=== PATIENT | female | born 1970 | race Caucasian/White ===

== ENCOUNTER 2018-07-08 01:45 | Inpatient (IN) | payer MEDICAID, OTHER ==
[~2018-07-08] VITALS: Ht 157.5 cm; Wt 62.1 kg
[2018-07-08 01:48] VITALS: BP 118/79
--- NOTE | 2018-07-08 01:48 | NUR ---
TO BED # 09 AMBULATORY, REPORT GIVEN TO LENY PATE
[2018-07-08] MEDS ORDERED: NACL 0.9% 1,000 ML IV SCH (01:54)
[2018-07-08] MEDS ORDERED: fentaNYL 0.05 MG/ML VIAL IVP ONE ×2 (01:55→03:30)
--- NOTE | 2018-07-08 02:00 | NUR ---
47 y/o f presented to the ED with c/o abdominal pain x1 day. AAO x4. 10/10 pain per pt, aching in nature. Tenderness to touch to lower abdomen. N/V present. Denies PHM. Bedrails x2 up. HOB elevated for comfort. Bed in lowest postion. notifed. Will continue to monitor. Addendum: 07/08/18 at 0430 by [employer] 47 y/o f presented to the ED with c/o abdominal pain x1 day. AAO x4. 10/10 pain per pt, aching in nature. Tenderness to touch to lower abdomen. N/V present. PMH renal stent and mitral valve prolapse. Smoker. Bedrails x2 up. HOB elevated for comfort. Bed in lowest postion. notifed. Will continue to monitor.
[2018-07-08] MEDS ORDERED: ONDANSETRON 4 MG/2 ML VIAL IVP ONE (02:05)
[2018-07-08] MEDS ORDERED: fentaNYL 0.05 MG/ML VIAL ONE ×2 (02:10→03:42)
[2018-07-08 02:30] LABS: BASOPHILS % (AUTO) 0.5 % (0.0-2.0); EOSINOPHILS % (AUTO) 0.5 % (0.0-4.0); HEMATOCRIT 37.3 % (36-48); HEMOGLOBIN 12.6 g/dL (12.0-16.0); LYMPHOCYTES # (AUTO) 0.7 K/uL (2.5-16.5); LYMPHOCYTES % (AUTO) 9.3 % (20.5-51.1); MEAN CORPUSCULAR HEMOGLOBIN 29 pg (27-31); MEAN CORPUSCULAR HGB CONC 34 g/dL (33-37); MEAN CORPUSCULAR VOLUME 86.2 fL (80-94); MONOCYTES # (AUTO) 0.4 K/uL (0.8-1.0); MONOCYTES % (AUTO) 4.9 % (1.7-9.3); NEUTROPHILS # (AUTO) 6.6 K/uL (1.8-7.7); NEUTROPHILS % (AUTO) 84.8 % (42.2-75.2); PLATELET COUNT (AUTO) 166 K/uL (140-450); RED BLOOD CELL COUNT(AUTO) 4.32 MIL/uL (4.20-5.40); RED CELL DISTRIBUTION WIDTH 13.8 % (11.6-13.7); WHITE BLOOD COUNT (AUTO) 7.8 K/uL (4.8-10.8)
[2018-07-08] MEDS ORDERED: ONDANSETRON 4 MG/2 ML VIAL ONE (02:36)
[2018-07-08 02:40] LABS: ANION GAP 15.8 (8-16); CARBON DIOXIDE 27.9 mmol/L (21-32); CREATININE 0.9 mg/dL (0.6-1.3); POTASSIUM 3.7 mmol/L (3.5-5.1)
--- NOTE | 2018-07-08 02:40 | NUR ---
Straight cath done. Pt tolerated well.
[2018-07-08 02:46] LABS: ALBUMIN 3.7 g/dL (3.4-5.0); TOTAL BILIRUBIN 0.2 mg/dL (0.0-1.0)
--- NOTE | 2018-07-08 03:13 | NUR ---
PATIENT BACK FROM CT.
--- NOTE | 2018-07-08 03:25 | NUR ---
Dr. Grant evaluating patient at bedside.
[2018-07-08] MEDS ORDERED: DOCUSATE SODIUM 100 MG GELCAP PO PRN (04:00)
[2018-07-08] MEDS ORDERED: ACETAMINOPHEN 325 MG TAB PO PRN (04:00)
[2018-07-08] MEDS ORDERED: MORPHINE SULFATE 2 MG/ML SYR IVP PRN ×2 (04:00→09:10)
[2018-07-08] MEDS ORDERED: cefTRIAXone 1,000 MG VIAL ONE (04:09)
[2018-07-08 04:50] LABS: APPEARANCE,URINE SL CLOUDY (CLEAR); BILIRUBIN,URINE NEGATIVE (NEGATIVE); BLOOD, URINE 3+ (NEGATIVE); COLOR,URINE YELLOW (YELLOW); LEUKOCYTE ESTERASE ,URINE 1+ (NEGATIVE); NITRITE, URINE POSITIVE (NEGATIVE); PH,URINE 6.5 (5.0-9.0); UGLUCOSE NEGATIVE (NEGATIVE)
--- NOTE | 2018-07-08 04:55 | NUR ---
Pt report given to HERLINDA Harvey. Transfer of care at this time.
--- NOTE | 2018-07-08 04:55 | NUR ---
Patient will be admitted to care of MD Xavi. Admited to [facility]. Will go to room ICU3. Belongings list completed. Report to HERLINDA Harvey.
[2018-07-08] MEDS ORDERED: TAMSULOSIN 0.4 MG CAP PO SCH (05:00)
--- NOTE | 2018-07-08 05:05 | NUR ---
PATIENT TRANSFERRED FROM ER TO ICU-3 VIA W/C WITH 1 ASSISTANCE. PATIENT AAO X4, DROWSY NOTED. NO FEVER. NO ACUTE RESPIRATORY DISTRESS NOTED. BILATERAL LUNGS SOUND CLEAR ON ROOM AIR, O2 SAT ABOVE 95%. NO COUGH. SR ON THE MONITOR WITH HR 69. PERIPHERAL IV LINE TO RIGHT EJ 18G NOTED, INTACT AND PATENT. SKIN IS INTACT AND WARM TO TOUCH. HOB ELEVATED, BED IN LOW POSITION. CALL LIGHT WITHIN REACH. WILL CONTINUE TO MONITOR.
[2018-07-08 05:22] LABS: RBC,URINE 20-50 /HPF (0-5)
[2018-07-08] MEDS: NACL 0.9% 1,000 ML IV SCH ×3 (05:24→22:16)
[2018-07-08] MEDS ORDERED: TAMSULOSIN 0.4 MG CAP ONE (05:38)
--- NOTE | 2018-07-08 06:15 | NUR ---
DR. LINDSEY AT BEDSIDE TO EVAL THE PATIENT. HE CHANGED NPO TO CLEAR LIQUID DIET AT THIS TIME. WILL FOLLOW ORDERS.
--- NOTE | 2018-07-08 06:28 | NUR ---
DR. WEBB AT BEDSIDE TO CHECK THE PATIENT. WILL FOLLOW ORDER.
--- NOTE | 2018-07-08 07:30 | NUR ---
RECEIVED BEDSIDE REPORT FROM MANUSCRIPT EDITOR RN. PT IS ASLEEP. AROUSABLE TO LIGHT PAIN. AAOX4. PT IS AFEBRILE. NO C/O PAIN. SINUS RHYTHM ON MONITOR. PT IS ON ROOM AIR, SPO2 99% RR 14, LUNGS SOUND CLEAR BILATERALLY. ABDOMEN SOFT, NONTENDER, BOWEL SOUNDS PRESENT. PERIPHERAL IV G18 TO RIGHT EJ ASYMPTOMATIC, PATENT AND INTACT, PT RECEIVING IVF NS AT 100 ML/HR. SKIN IS INTACT, DRY AND WARM TO TOUCH. PULSES PALPABLE TO ALL EXTREMITIES. NO EDEMA NOTED. HOB 30 DEGREES, BED IN LOWEST POSITION AND CALL LIGHT WITHIN REACH. WILL CONTINUE TO MONITOR.
--- NOTE | 2018-07-08 07:45 | NUR ---
EKG BEING DONE AT BESIDE. PT IS DROWSY. VSS. NO SIGNS OF DISTRESS NOTED.
--- NOTE | 2018-07-08 07:53 | NUR ---
DR. KRISHNAMURTHY AND RESIDENT GROUP IN TO SEE PT. WILL FOLLOW UP ON ORDERS.
[2018-07-08 08:00] VITALS: BP 110/66
[2018-07-08] MEDS ORDERED: MORPHINE SULFATE 2 MG/ML SYR ONE (08:12)
--- NOTE | 2018-07-08 08:47 | NUR ---
PATIENT HAS BEEN SCREENED AND CATEGORIZED HIGH NUTRITION RISK. PATIENT WILL BE SEEN WITHIN 1-2 DAYS OF ADMISSION. 07/08/18-07/09/[address]
[2018-07-08] MEDS: LACTOBACILLUS RHAMNOSUS GG 1 EACH CAP PO SCH (08:52)
[2018-07-08] MEDS: ALPRAZolam 0.5 MG TAB PO PRN ×3 (08:53→20:57)
--- NOTE | 2018-07-08 08:53 | NUR ---
XANAX 0.5 MG PO GIVEN FOR ANXIETY.
--- NOTE | 2018-07-08 09:12 | NUR ---
PT ADMITS TO SMOKING HEROINE EVERY TWO HOURS EVERYDAY AT HOME. DR. ANDERSEN MADE AWARE.
[2018-07-08] MEDS: HYDROcodone/APAP 7.5/325 MG 1 TAB PO PRN (09:17)
[2018-07-08] MEDS: ONDANSETRON 4 MG/2 ML VIAL IM/IVP PRN (09:34)
--- NOTE | 2018-07-08 10:10 | NUR ---
PT TRANSFERRING TO MED/SURG ROOM 106B. TELEPHONE REPORT GIVEN TO HERLINDA ROBLES. NO SIGNS OF DISTRESS NOTED UPON TRANSFER.
--- NOTE | 2018-07-08 10:11 | NUR ---
RECEIVED REPORT FROM ICU NURSE JAZ. PT IN STABLE CONDITION. IV INTACT AND PATENT. RESPIRATIONS EVEN AND UNLABORED. BED IN LOW POSITION. WILL CONTINUE TO MONITOR.
[2018-07-08 12:00] VITALS: BP 133/84
--- NOTE | 2018-07-08 12:45 | NUR ---
PT LYING IN BED SLEEPING AT THIS TIME. RESPIRATIONS EVEN AND UNLABORED WILL CONTINUE TO MONITOR. BED IN LOW POSITION. CALL LIGHT AT BEDSIDE.
[2018-07-08 14:20] LABS: BASOPHILS % (AUTO) 0.3 % (0.0-2.0); EOSINOPHILS % (AUTO) 0.2 % (0.0-4.0); HEMATOCRIT 36.5 % (36-48); HEMOGLOBIN 12.2 g/dL (12.0-16.0); LYMPHOCYTES # (AUTO) 0.7 K/uL (2.5-16.5); LYMPHOCYTES % (AUTO) 10.1 % (20.5-51.1); MEAN CORPUSCULAR HEMOGLOBIN 29 pg (27-31); MEAN CORPUSCULAR HGB CONC 33 g/dL (33-37); MEAN CORPUSCULAR VOLUME 86.8 fL (80-94); MONOCYTES # (AUTO) 0.3 K/uL (0.8-1.0); MONOCYTES % (AUTO) 4.8 % (1.7-9.3); NEUTROPHILS % (AUTO) 84.6 % (42.2-75.2); PLATELET COUNT (AUTO) 185 K/uL (140-450); RED BLOOD CELL COUNT(AUTO) 4.21 MIL/uL (4.20-5.40); RED CELL DISTRIBUTION WIDTH 14.2 % (11.6-13.7); WHITE BLOOD COUNT (AUTO) 7.1 K/uL (4.8-10.8)
[2018-07-08 14:46] LABS: ANION GAP 12.8 (8-16); CARBON DIOXIDE 25.9 mmol/L (21-32); CREATININE 0.8 mg/dL (0.6-1.3); POTASSIUM 3.7 mmol/L (3.5-5.1)
--- NOTE | 2018-07-08 15:10 | NUR ---
07/08/18 RD INITIAL ASSESSMENT COMPLETED PLEASE REFER TO NUTRITION ASSESSMENT UNDER CARE ACTIVITY FOR ESTIMATED NUTRITIONAL NEEDS. 1. CONTINUE CLEAR DIET TOLERATED 2. RECOMMEND ENSURE CLEAR BID 3. WHEN PATIENT BECAUSE MEDICALLY STABLE CONSIDER ADVANCING DIET TO REGULAR 4. RD TO FOLLOW-UP 3-5 DAYS, MODERATE RISK ALISON PORRAS, KYLE
[2018-07-08 16:00] VITALS: BP 136/82
--- NOTE | 2018-07-08 16:23 | NUR ---
PT C/O LOWER BACK PAIN 12/30. OFFERED NORCO PT STATED NORCO DID NOT HELP WHEN SHE RECEIVED IT IN THE EMERGENCY ROOM THAT MORPHINE HELPED WITH HER PAIN. MEDICATED WITH MORPHINE AT THIS TIME.
[2018-07-08] MEDS ORDERED: HYDROmorphone 2 MG TAB PO PRN (18:00)
--- NOTE | 2018-07-08 18:45 | NUR ---
PT STATED SHE LEFT HER GLASSES IN ICU OR AT [facility] (PT WENT TO THIS HOSPITAL BEFORE COMING TO [facility]). ICU AND ER WAS CALLED AND KNOW GLASSES WERE TURNED IN.
--- NOTE | 2018-07-08 18:50 | NUR ---
STRAINED URINE NO STONES NOTED THROUGHOUT SHIFT.
--- NOTE | 2018-07-08 19:30 | NUR ---
GAVE REPORT TO EXECUTIVE ASSISTANT TO GENERAL COUNSEL NURSE FOR CONTINUITY OF CARE. PT IN STABLE CONDITION.
--- NOTE | 2018-07-08 19:35 | NUR ---
RECEIVED ENDORSEMENT FROM AM SHIFT RN; PATIENT A/Ox4, ABLE TO MAKE NEEDS KNOWN AND AMBULATORY. PATIENT TALKING WITH FRIEND AND WATCHING TV, INTRODUCED SELF, UPDATED BOARD. NO SOB OR DISTRESS NOTED. IV SITE RIGHT IJ, 18 GAUGE, INTACT AND PATENT. SKIN INTACT. BED IN THE LOWEST POSITION, CALL LIGHT WITHIN REACH. INITIAL ASSESSMENT DONE. WILL CONTINUE TO MONITOR.
--- NOTE | 2018-07-08 20:45 | NUR ---
PATIENT COMPLAINED OF 8/10 ABDOMINAL PAIN. MEDICATED ORDERED AND PER PAIN SCALE.
[2018-07-08] MEDS: HYDROmorphone 1 MG/ML AMP IVP PRN (20:58)
--- NOTE | 2018-07-08 22:05 | NUR ---
CHECKS MADE. PATIENT USING HER CELLPHONE, NO SOB OR DISTRESS NOTED.
[2018-07-08] MEDS ORDERED: NICOTINE TRANSD SYS 21 MG/24 HR PATCH TD SCH (23:30)
[2018-07-09] VITALS: BP 122/81
--- NOTE | 2018-07-09 00:20 | NUR ---
FREQUENT CHECKS MADE. PATIENT AWAKE, WATCHING TV.
[2018-07-09] MEDS: HYDROmorphone 1 MG/ML AMP IVP PRN (02:04)
--- NOTE | 2018-07-09 02:06 | NUR ---
PATIENT COMPLAINED OF 8/10 ABDOMINAL PAIN. MEDICATED ORDERED AND PER PAIN SCALE. WILL CONTINUE TO MONITOR.
--- NOTE | 2018-07-09 02:36 | NUR ---
REASSESSED PATIENT AFTER ADMINISTERING PAIN MED; PATIENT AWAKE, USING HER CELLPHONE. ASKED IF SHE WAS IN ANY PAIN, PATIENT STATED "1/10 PAIN". WILL CONTINUE TO MONITOR.
--- NOTE | 2018-07-09 04:30 | NUR ---
ROUNDS MADE. PATIENT ASLEEP, EYES CLOSED, VISIBLE CHEST RISE AND FALL NOTED.
[2018-07-09 07:12] LABS: BASOPHILS % (AUTO) 0.6 % (0.0-2.0); EOSINOPHILS # (AUTO) 0.1 K/uL (0-0.4); EOSINOPHILS % (AUTO) 3.1 % (0.0-4.0); HEMATOCRIT 34.5 % (36-48); HEMOGLOBIN 11.5 g/dL (12.0-16.0); LYMPHOCYTES # (AUTO) 1.2 K/uL (2.5-16.5); LYMPHOCYTES % (AUTO) 32.8 % (20.5-51.1); MEAN CORPUSCULAR HEMOGLOBIN 29 pg (27-31); MEAN CORPUSCULAR HGB CONC 33 g/dL (33-37); MEAN CORPUSCULAR VOLUME 87.3 fL (80-94); MONOCYTES # (AUTO) 0.3 K/uL (0.8-1.0); MONOCYTES % (AUTO) 7.4 % (1.7-9.3); NEUTROPHILS % (AUTO) 56.1 % (42.2-75.2); PLATELET COUNT (AUTO) 164 K/uL (140-450); RED BLOOD CELL COUNT(AUTO) 3.95 MIL/uL (4.20-5.40); RED CELL DISTRIBUTION WIDTH 14.7 % (11.6-13.7); WHITE BLOOD COUNT (AUTO) 3.6 K/uL (4.8-10.8)
[2018-07-09 08:00] VITALS: BP 123/65
--- NOTE | 2018-07-09 08:00 | NUR ---
RECEIVED BEDSIDE REPORT FROM DATA OPERATIONS MANAGER NURSE. PATIENT AAOX4. PATIENT ON ROOM AIR, NO DISTRESS NOTED. SKIN INTACT. PATIENT ON MED SURGE AND STANDARD PRECAUTIONS IN PLACE. PATIENT AMBULATORY AND CONTINENT. IV ON R EJ 18 G, INFUSING NS AT 100. IV ASYMPTOMATIC PATENT AND INTACT. BED IN LOW POSITION, CALL LIGHT WITHIN REACH. WILL CONTINUE TO MONITOR.
[2018-07-09 08:07] LABS: ANION GAP 12.3 (8-16); CARBON DIOXIDE 28.7 mmol/L (21-32); CREATININE 0.7 mg/dL (0.6-1.3)
[2018-07-09 08:13] LABS: MAGNESIUM 1.7 mg/dL (1.8-2.4); PHOSPHORUS 3.1 mg/dL (2.5-4.9)
[2018-07-09] MEDS: TAMSULOSIN 0.4 MG CAP PO SCH (08:30)
[2018-07-09] MEDS: LACTOBACILLUS RHAMNOSUS GG 1 EACH CAP PO SCH (09:00)
[2018-07-09] MEDS: NICOTINE TRANSD SYS 21 MG/24 HR PATCH TD SCH (09:00)
--- NOTE | 2018-07-09 09:10 | NUR ---
ADMINISTERED SCHEDULED MEDS. PATIENT TOLERATED WELL. WILL CONTINUE TO MONITOR.
[2018-07-09] MEDS: NACL 0.9% 1,000 ML IV SCH ×2 (09:57→20:28)
[2018-07-09] MEDS ORDERED: MAGNESIUM OXIDE 400 MG TAB PO SCH (11:00)
[2018-07-09] MEDS ORDERED: POTASSIUM CHLORIDE 40 MEQ, LIDOCAINE 1% 25 MG in NACL 0.9% 250 ML IV SCH (11:00)
[2018-07-09] MEDS ORDERED: POTASSIUM CHLORIDE 10 MEQ TABER PO SCH (11:00)
--- NOTE | 2018-07-09 11:00 | NUR ---
PATIENT SLEEPING, ON ROOM AIR, NO DISTRESS NOTED. WILL CONTINUE TO MONITOR.
[2018-07-09] MEDS: ALPRAZolam 0.5 MG TAB PO PRN ×2 (13:03→23:59)
--- NOTE | 2018-07-09 13:06 | NUR ---
ADMINISTERED XANAX PRN ANXIETY AND TYLENOL PRN HEADACHE. BP 130/82 AND HR 87. PATIENT TOLERATED WELL. WILL CONTINUE TO MONITOR.
[2018-07-09] MEDS: ONDANSETRON 4 MG/2 ML VIAL IM/IVP PRN (13:27)
--- NOTE | 2018-07-09 15:50 | NUR ---
PATIENT SLEEPING. NO DISTRESS NOTED, ON ROOM AIR. WILL CONTINUE TO MONITOR.
[2018-07-09 16:00] VITALS: BP 154/88
--- NOTE | 2018-07-09 16:46 | NUR ---
FRIEND AT BEDSIDE. PATIENT HAS NO COMPLAINTS AT THIS TIME, WILL CONTINUE TO MONITOR.
--- NOTE | 2018-07-09 18:20 | NUR ---
PATIENT STATED R EJ 18 G IV IS STINGING, SHE CAN BARELY MOVE HER NECK. DISCONTINUED IV. STARTED NEW IV ON L FA 22 G INFUSING NS AT 100. IV ASYMPTOMATIC, PATENT AND INTACT.
[2018-07-09] MEDS: MORPHINE SULFATE 4 MG/ML SYR IVP PRN (18:31)
--- NOTE | 2018-07-09 19:15 | NUR ---
GAVE REPORT TO HERLINDA WRIGHT. PATIENT ENDORSED IN STABLE CONDITION.
--- NOTE | 2018-07-09 19:17 | NUR ---
RECEIVED ENDORSEMENT FROM AM SHIFT RN; PATIENT A/Ox4, ABLE TO MAKE NEEDS KNOWN AND AMBULATORY. PATIENT TALKING WITH MALE AND FEMALE FRIEND, INTRODUCED SELF, UPDATED BOARD. NO SOB OR DISTRESS NOTED. IV SITE L FOREARM, 22 GAUGE, INTACT AND PATENT. SKIN INTACT. BED IN THE LOWEST POSITION, CALL LIGHT WITHIN REACH. INITIAL ASSESSMENT DONE. WILL CONTINUE TO MONITOR.
--- NOTE | 2018-07-09 21:30 | NUR ---
FREQUENT CHECKS MADE, PATIENT USING HER CELLPHONE AND WATCHING TV. NO DISTRESS NOTED.
--- NOTE | 2018-07-09 22:50 | NUR ---
PATIENT AGITATED; CLAIMS SECURITY DID NOT LET HER FRIEND ENTER THE LOBBY, WHO CAME TO DROP OFF A BLANKET AND FOOD FOR HER. ASKED SECURITY ABOUT THE SITUATION, SECURITY CLAIMS HE HAS NOT SEEN ANYONE IN THE LOBBY. WILL CONTINUE TO MONITOR.
--- NOTE | 2018-07-09 23:20 | NUR ---
ROUNDS DONE. PATIENT USING HER CELLPHONE. NO DISTRESS NOTED.
[2018-07-10] VITALS: BP 115/84
--- NOTE | 2018-07-10 00:08 | NUR ---
VITALS TAKEN, PATIENT COMPLAINED OF 8/10 RIGHT ABDOMINAL PAIN. MEDICATED ORDERED AND PER PAIN SCALE. WILL CONTINUE TO MONITOR.
--- NOTE | 2018-07-10 01:30 | NUR ---
PATIENT STILL AWAKE, AWAITING FRIEND WHO WILL BRING HER FOOD AND A BLANKET; INSTRUCTED PATIENT TO TELL FRIEND TO WAIT IN THE LOBBY AND ITEMS WILL BE RETRIEVED BY NURSE, VISITING HOURS ARE FROM 8AM-8PM AND VISITOR WILL NOT BE ALLOWED TO ENTER THE UNIT.
--- NOTE | 2018-07-10 03:05 | NUR ---
WENT TO SECURITY OFFICE TO DIRECTOR DATA ARCHITECTURE BACKPACK FRIEND LEFT FOR PATIENT. GAVE BACKPACK TO PATIENT.
--- NOTE | 2018-07-10 03:30 | NUR ---
CALLED INTO PATIENT ROOM; PATIENT CLAIMED EITHER SECURITY OR MYSELF STOLE $3500 ADELINA RING. REASSURED PATIENT THAT NEITHER SECURITY OR MYSELF STOLE RING. UNIVERSAL GRINDER SET UP OPERATOR QUITA AND CHARGE NURSE [place]WA MADE AWARE. CHECKED PATIENT BELONGINGS LIST, NO ADELINA RING WAS LISTED. WILL INVESTIGATE FURTHER.
--- NOTE | 2018-07-10 03:45 | NUR ---
INSURANCE RISK SURVEYOR QUITA TALKED TO PATIENT. AFTER INSURANCE RISK SURVEYOR STATING SHE WILL LOOK INTO THE SECURITY CAMERA TO VERIFY PATIENT'S CLAIM, PATIENT STATED RING WAS NOT IN THE BACKPACK THAT WAS BROUGHT IN BY FRIEND, THAT RING WAS AT HOME. Addendum: 07/10/18 at 0502 by Nikolai Lopez RN ADDENDUM - PATIENT STATED TO THE INSURANCE RISK SURVEYOR THAT RING WAS NOT IN THE BACKPACK THAT WAS BROUGHT IN BY FRIEND, THAT RING WAS AT HOME.
--- NOTE | 2018-07-10 04:05 | NUR ---
PATIENT STATED SHE WAS ANXIOUS AND IN PAIN. CLARIFIED TO THE PATIENT THAT IT WAS TOO EARLY TO ADMINISTER ANOTHER DOSE OF XANAX. DR. LINDSEY MADE AWARE; ORDERS MADE AND CARRIED OUT.
[2018-07-10] MEDS: MORPHINE SULFATE 4 MG/ML SYR IVP PRN ×2 (04:10)
[2018-07-10] MEDS ORDERED: ALPRAZolam 0.5 MG TAB PO SCH (04:30)
[2018-07-10] MEDS: NACL 0.9% 1,000 ML IV SCH (05:44)
--- NOTE | 2018-07-10 06:00 | NUR ---
DUE MEDS GIVEN. PATIENT ASLEEP, VISIBLE CHEST RISE AND FALL NOTED.
--- NOTE | 2018-07-10 06:30 | NUR ---
MADE ROUNDS, PATIENT APOLOGIZED FOR OUTBURST AND FALSE CLAIM; STATED SHE WAS EMOTIONAL AND HOMESICK.
[2018-07-10 07:00] LABS: BASOPHILS % (AUTO) 0.6 % (0.0-2.0); EOSINOPHILS # (AUTO) 0.1 K/uL (0-0.4); EOSINOPHILS % (AUTO) 3.9 % (0.0-4.0); HEMATOCRIT 33.2 % (36-48); HEMOGLOBIN 11.2 g/dL (12.0-16.0); LYMPHOCYTES # (AUTO) 1.1 K/uL (2.5-16.5); LYMPHOCYTES % (AUTO) 38.7 % (20.5-51.1); MEAN CORPUSCULAR HEMOGLOBIN 30 pg (27-31); MEAN CORPUSCULAR HGB CONC 34 g/dL (33-37); MEAN CORPUSCULAR VOLUME 87.2 fL (80-94); MONOCYTES # (AUTO) 0.2 K/uL (0.8-1.0); MONOCYTES % (AUTO) 6.6 % (1.7-9.3); NEUTROPHILS # (AUTO) 1.4 K/uL (1.8-7.7); NEUTROPHILS % (AUTO) 50.2 % (42.2-75.2); PLATELET COUNT (AUTO) 155 K/uL (140-450); RED BLOOD CELL COUNT(AUTO) 3.81 MIL/uL (4.20-5.40); RED CELL DISTRIBUTION WIDTH 14.2 % (11.6-13.7); WHITE BLOOD COUNT (AUTO) 2.8 K/uL (4.8-10.8)
--- NOTE | 2018-07-10 07:05 | NUR ---
ENDORSED PATIENT TO AM SHIFT RN; PATIENT IN STABLE CONDITION.
--- NOTE | 2018-07-10 07:08 | NUR ---
RECEIVED HAND OFF REPORT FROM PASTRY WRAPPER NURSE. PT IN BED ASKING FOR PAIN MEDICATION. NO OTHER SIGNS OF DISTRESS. ALL SAFETY MEASURES IN PLACE
[2018-07-10 07:28] LABS: MAGNESIUM 1.5 mg/dL (1.8-2.4); PHOSPHORUS 3.5 mg/dL (2.5-4.9)
[2018-07-10 07:34] LABS: ANION GAP 10.1 (8-16); CARBON DIOXIDE 28.7 mmol/L (21-32); CREATININE 0.7 mg/dL (0.6-1.3); POTASSIUM 3.8 mmol/L (3.5-5.1)
[2018-07-10] MEDS: TAMSULOSIN 0.4 MG CAP PO SCH (07:48)
[2018-07-10] MEDS: HYDROcodone/APAP 7.5/325 MG 1 TAB PO PRN (07:50)
--- NOTE | 2018-07-10 07:50 | NUR ---
VITAL SIGNS COMPLETED AND PT RECEIVED NORCO FOR 6/10 ABD PAIN
[2018-07-10 08:00] VITALS: BP 107/74
[2018-07-10] MEDS ORDERED: MAG SULF 2000 MG/WATER PREMIX 50 ML IV SCH (08:00)
[2018-07-10 08:16] LABS: AMYLASE 28 U/L (25-115)
[2018-07-10] MEDS ORDERED: ACET-8386 PO (08:19)
[2018-07-10] MEDS ORDERED: IBUP-2213 PO (08:19)
[2018-07-10] MEDS ORDERED: ONDA-24 SL (08:19)
[2018-07-10] MEDS: NICOTINE TRANSD SYS 21 MG/24 HR PATCH TD SCH (08:32)
[2018-07-10] MEDS: LACTOBACILLUS RHAMNOSUS GG 1 EACH CAP PO SCH (08:32)
--- NOTE | 2018-07-10 09:00 | NUR ---
FREQUENT ROUNDING ON PT. PT FRIENDS AT BEDSIDE
--- NOTE | 2018-07-10 10:00 | NUR ---
PT REQUESTING TOMATO JUICE. SPOKE WITH FNS PT IS NOT ABLE TO HAVE TOMATO JUICE BECAUSE SHE IS RENAL DIET. INFORMED PT ABOUT THIS.
[2018-07-10 10:13] LABS: PROTHROMBIN TIME 10.1 secs (10.8-13.4)
--- NOTE | 2018-07-10 10:20 | NUR ---
FREQUENT ROUNDING ON PT. PT HAS FRIENDS VISITING. NO APPARENT SIGNS OF DISTRESS. WILL CONTINUE TO MONITOR.
[2018-07-10 10:23] LABS: CHOL/HDL RATIO 2.4 (1-4.5); PHOSPHORUS 3.6 mg/dL (2.5-4.9); THYROID STIMULATING HORMONE 1.42 uIU/mL (0.34-3.74)
[2018-07-10] MEDS ORDERED: LACT10CA PO (12:45)
[2018-07-10] MEDS ORDERED: CEPH250C16 PO (12:45)
--- NOTE | 2018-07-10 12:49 | NUR ---
FREQUENT ROUNDING ON PT. PT IS RESTING COMFORTABLY IN BED WITH FRIENDS AT BEDSIDE. PT IS ASKING ABOUT WHEN SHE WILL BE DISCHARGED. WILL CONTINUE TO MONITOR PT
--- NOTE | 2018-07-10 13:50 | NUR ---
PT IS PREPARED FOR DISCHARGE. REMOVED IV. IV CATH TIP INTACT. REMOVED ARM BANDS. PT IS WAITING FOR RIDE. DISCHARGE INSTRUCTIONS GIVEN. PT VERBALIZED UNDERSTANDING. PT IS AWARE OF FOLLOW UP APPOINT ON June.
--- NOTE | 2018-07-10 15:10 | NUR ---
PT'S RIDE IS HERE, PT UP AMBULATING WELL WITH STEADY GAIT, DC HOME WITH FRIENDS.
--- NOTE | 2018-07-10 18:28 | NUR ---
EVS FOUND PTS PINK PHONE CLERK ENTRY LEVEL LEFT IN ROOM. PUT IT IN NURSES STATION WITH HER NAME ON IT. LEFT A VOICEMAIL ON HER NUMBER PROVIDED IN HER CHART [phone]
== END 2018-07-10 15:10 | disposition home or self-care (01) | DRG 465 ==
LOC: MED 01:45 → MTU 03:59 → MIC 04:00 → MTU 10:10
PROVIDERS: ADMIT General Practice; ATTEND General Practice
DX: N13.2 Hydronephrosis with renal and ureteral calculous obstruction (principal); E83.42 Hypomagnesemia; E66.3 Overweight; E87.6 Hypokalemia; Z68.25 Body mass index [BMI] 25.0-25.9, adult; Z71.3 Dietary counseling and surveillance; Z91.14 Patient's other noncompliance with medication regimen
CPT/HCPCS: 36415; 71045; 80048; 80053; 81001; 81025; 82150; 83036; 83690; 83735; 83880; 84100; 84443; 84484; 85025; 85610; 85730; 87040; 87081; 87086; 87186; 93005; 96365; 96375; 96376; 99285; J0696; J1170; J2001; J2270; J2405; J3010; J3475; J3480; J7030; J7060; Q0092